=== PATIENT | female | born 1930 | race Caucasian/White ===

== ENCOUNTER 2018-02-25 13:22 | Observation (INO) | payer BC, OTHER ==
[2018-02-25 13:58] VITALS: BMI 19.7
--- NOTE | 2018-02-25 14:24 | PDOC ---
History of Present Illness - General Chief Complaint: Injury Stated Complaint: Injury Time Seen by Provider: 02/25/18 13:43 History Source: Patient Exam Limitations: Clinical Condition, Dementia - History of Present Illness Initial Comments: 87 yo F w a pmh of HTN, HCL, unsteady gait, dementia is here after an unwitnessed fall. She reports she was not able to get up and that's why she needed to come into the hospital. She does not know when she fell or for how long she was down for. Her diaper smells of urine so she likely soiled herself. An aid at bedside reports that when EMS got there there was a cup of tea on the table which was lukewarm so they believe she might have slipped and fell this morning. She states that she is only experiencing pain right now in her Right leg and she cannot walk on it. She denies any recent fevers, chills, or infections. She denies any current chest pain, SOB, or dfficulty breathing. PCP: Rey Davis Meds: amlodipine 10 + atorvastatin 20 Allergies: NKA, NKDA Social Hx: Denies current cigarette or alcohol usage. Past History - Past Medical History Allergies/Adverse Reactions: Allergies Allergy/AdvReac Type Severity Reaction Status Date / Time No Known Allergies Allergy Verified 02/25/18 13:37 COPD: No CHF: No HTN: Yes Hypercholesterolemia: Yes - Suicide/Smoking/Psychosocial Hx Smoking History: Never smoked Have you smoked in the past 12 months: No Information on smoking cessation initiated: No Hx Alcohol Use: No Drug/Substance Use Hx: No Review of Systems - Review of Systems Able to Perform ROS?: No *Physical Exam - Vital Signs Last Vital Signs Temp Pulse Resp BP Pulse Ox 97.7 F 77 16 105/48 L 100 02/25/18 13:22 02/25/18 13:22 02/25/18 13:22 02/25/18 13:22 02/25/18 13:22 - Physical Exam Comments: GENERAL: Thin elderly lady, demented, sitting comfortably in the bed. HEENT: Dry mucous membranes. b/l cataracts. Normocephalic, atraumatic. PERRL, EOM intact. CARDIOVASCULAR: Normal S1, S2. Regular rate and rhythm. PULMONARY: Clear to auscultation bilaterally. ABDOMEN: Soft, non-distended, non-tender. EXTREMITIES: Mild erythematous abrasion over the laterall Right knee. Normal ROM in all four extremities. No gross deformities. SKIN: Warm, dry. No rash NEUROLOGICAL: No focal neurological deficits. General Appearance: Yes: Disheveled, Cachetic, Thin HEENT: positive: EOMI, MIMI Moderate Sedation - Procedure Monitoring Vital Signs: Procedure Monitoring Vital Signs Temperature 97.7 F 02/25/18 13:22 Pulse Rate 77 02/25/18 13:22 Respiratory Rate 16 02/25/18 13:22 Blood Pressure 105/48 L 02/25/18 13:22 O2 Sat by Pulse Oximetry (%) 100 02/25/18 13:22 ED Treatment Course - LABORATORY CBC & Chemistry Diagram: 02/25/18 14:43 02/25/18 16:30 Medical Decision Making - Medical Decision Making 87 yo F w a pmh of HTN, HCL, unsteady gait, dementia is here after an unwitnessed fall. She reports she was not able to get up and that's why she needed to come into the hospital. She does not know when she fell or for how long she was down for. Her diaper smells of urine so she likely soiled herself. DDx IBNLT: Mechanical fall, cva/stroke, brain bleed, ACS, PNA, UTI, other infection, dehydration Plan: Cbc, Cmp, Trop, ua/uc, right leg x-rays, heaD CT, ekg, cxr, acetaminophen , IV hydration, re-assess, admit. Troponin came back at 0.4 Patient is refusing to allow us to cath her for urine. We will admit patient for Dehydration, fall, syncope, MCKENNA, and elevated troponin. *DC/Admit/Observation/Transfer Diagnosis at time of Disposition: Fall, Syncope, Dehydration, Elevated troponin - Discharge Dispostion Condition at time of disposition: Guarded Decision to Admit order: Yes - Referrals Referrals: Rey Davis MD [Primary Care Provider] - - Patient Instructions - Post Discharge Activity
[2018-02-25] MEDS ORDERED: ACETAMINOPHEN 1000 MG/100 ML VIAL (NON FORMULARY) IVPB ONE (14:52)
[2018-02-25] MEDS ORDERED: SODIUM CHLORIDE 0.9% 500 ML INFUS.BAG IV ONE ×2 (14:53→18:42)
[2018-02-25] MEDS ORDERED: ACETAMINOPHEN INJECTION 100 ML IVPB ONE (15:55)
[2018-02-25 16:08] LABS: BASO % 0.4 % (0-2.0); HEMATOCRIT 37.3 % (32.4-45.2); HEMOGLOBIN 12.8 GM/dL (10.7-15.3); LYMPH % 4.4 % (8-40); MCH 31.1 pg (25.7-33.7); MCHC 34.4 g/dl (32.0-36.0); MEAN CELL VOLUME 90.3 fl (80-96); MEAN PLT VOLUME 10.2 fl (7.5-11.1); MONO % 7.4 % (3.8-10.2); NEUT % 87.8 % (42.8-82.8); PLATELET COUNT 201 K/MM3 (134-434); RBC 4.13 M/mm3 (3.60-5.2); RDW 13.8 % (11.6-15.6); WHITE BLOOD COUNT 15.2 K/mm3 (4.0-10.0)
--- NOTE | 2018-02-25 16:19 | PDOC ---
Attending Attestation - Resident Resident Name: Hammad Delarosa - ED Attending Attestation I have performed the following: I have examined & evaluated the patient, The case was reviewed & discussed with the resident, I agree w/resident's findings & plan, Exceptions are as noted - HPI HPI: 02/25/18 16:12 The patient is a 87 year old female, with a significant past medical history of HTN, HLD, unsteady gait, and dementia, who presents to the emergency department s/p unwitnessed fall. Patient is unaware of when she fell due to her dementia. As per patients aid, she was found down on the floor with a wet diaper near a lukewarm cup of tea. The patient normally lives at home and has an aid from an agency visit her. Patients aid notes calling her Sunday without an answer and multiple calls today, without an answer. Patient is a poor historian thus history was obtained from aid at bedside and her PCP. Allergies: NKDA Social history: Nonsmoker. Denies EtOH use and recreational drug use. Primary Care Physician: Dr. Rey Davis - Physicial Exam PE: 02/25/18 16:12 agree with resident exam - Medical Decision Making 02/25/18 18:45 87yo F with hx dementia, HTN presents to the ED after unwitnessed fall and unknown down time. Vitals unremarkable. Unclear syncope vs mechanical fall however due to dementia, hx limited. Labs remarkable for leukocytosis to 15. Trauma w/u thusfar negative. CPK not concerning for rhabdo. Trop elevated to 0.4 , likely demand as EKG is non-ischemic, pt has no CP, SOB or pain anywhere. Possible UTI, however pt refusing straight cath. Has been given 1.5L NS, unable to use bed ybarra. No evidence of SIRS to cover empirically at this time. Pt admitted to Dr. Zhong for further mgmt. Case discussed in detail with admitting physician including history, physical exam and ancillary studies. Admitting physician has assumed care for the patient, will follow all pending diagnostics and will complete the evaluation and treatment. <Mary Diaz - Last Filed: 02/25/18 19:31> Attestations - Attestations 02/25/18 16:40 Documentation prepared by Paul Hdez, acting as senior medical transcriptionist for Mary Diaz MD. <Paul Hdez - Last Filed: 02/25/18 16:40>
[2018-02-25 17:48] LABS: ALBUMIN 3.2 g/dl (3.4-5.0); ALK PHOS 79 U/L (45-117); ANION GAP 12 MMOL/L (8-16); BILIRUBIN,TOTAL 1.1 mg/dL (0.2-1); BLOOD UREA NITROGEN 21 mg/dL (7-18); CALCIUM 8.8 mg/dL (8.5-10.1); CHLORIDE 106 mmol/L (98-107); CO2 22 mmol/L (21-32); CREATININE 1.6 mg/dL (0.55-1.3); GLUCOSE,RANDOM 80 mg/dL (74-106); POTASSIUM 4.8 mmol/L (3.5-5.1); SGOT/AST 30 U/L (15-37); SGPT/ALT 14 U/L (13-61); SODIUM 139 mmol/L (136-145); TOT PROT 5.9 g/dl (6.4-8.2)
[2018-02-25] MEDS ORDERED: ACETAMINOPHEN 325 MG TABLET (FP) PO PRN (20:26)
[2018-02-25] MEDS ORDERED: LACTATED RINGERS SOLUTION 1,000 ML IV SCH (20:30)
--- NOTE | 2018-02-25 20:45 | PN ---
Teaching Attending Note Name of Resident: Mike Siddiqui ATTENDING PHYSICIAN STATEMENT I saw and evaluated the patient. I reviewed the resident's note and discussed the case with the resident. I agree with the resident's findings and plan as documented. SUBJECTIVE: Seen and examined; please see resident note for further information. She is a 87 y/o CF with a PMH documented of HTN, HLD who presents to the ER after being found down froma fall that likely occurred sometime this morning. The aid found her down with warm coffee on her dresser indicating that it could have beenr ecent, she had some right leg pain. No facial trauma, etc. observed. Patient agrees that she has frequent falls at home. No family bedside so could not confirm further hx, etc. She is only orientated to self and place and is extremely hard of hearing. She has no complaints to offer except for the leg pain which already has negative imaging done in the ER. In the ER she had a ngeative trauma survey, was given 1.5L fluid, and was found to have a slight bump in her CK, troponin, and Cr with a slight leukocytosis. UA pending. She will be admitted to [facility] on the medicine service. 10 sys ROS done and negative aside from HPI PMH and PSH reviewed and are negative aside from HPI FH asked and noncontributory Social history significant for ambulates with a walker; aparently lives at home alone. She has an aide but this aide is not 24/7. Need to talk about full ADl/ IADL capacity with family, etc. Medication list reviewed with reisident but pharmacy, etc. unknown. Need to obtain information and confirm. OBJECTIVE: VS, labs, imaging reviewed NAD, resting in bed, hard of hearing, dry MMs CN2-12 wnl, no tremor, no fnd RRR s1/2 no mgr; orthostatic VS pending Lungs CTAB with sym exp NT ND +BS R-leg with negative varus/valgus/lachmans. Normal tone. Tender to palpation around the knee. NC AT EOMI PERRLA Labs show a slight leukocytosis to 15 with neutrophilic predominance, Cr 1.6, low prot/alb 5/9/3.2. Troponin 0.40, CKMB 7.9, CK 370 Imaging negative for acute findings in cpaine and head; please see reports for further documentation CXR without any acute findings No issues on tele EKG with NSR and no ST-T changes ASSESSMENT AND PLAN: Mrs. Clemente is an 87 y/o CF presenting after a fall found to have leukocytosis, elevated troponin/CK, MCKENNA. 1) Fall -Cause unknown; unreliable historian so cannot r/o syncopal causes though she does have adequate risks for a mechanical fall -Check orthostatic VS -In terms of cardiogenic causes she has negative EKG/tele thus far. Monitor on tele, check echo. Consider further imaging/tests based on results. -In terms of neurogenic causes she has no s/s seizures, negative neuro imaging. Monitor and consider further testing as needed -Consider mechanical fall; fall precautions -PT consult; she implies this is happening often -She may require placement 2) Elevated troponin -No c/o chest pain; nondiagnostic level. May be elevated from cardiac strain and renal retention. Will trend, monitor on tele, check an echo. No urgent need for stress test/CV consult. Consider ASA for primary prevention upon DC. 3) Elevated CK -Nondiagnostic at this level and she does appear dehydrated with elevated Cr, etc. Hydrate empirically and trend to ensure no rhabdo. Was down for unknown period of time. 4) MCKENNA -No baseline so assuming meeting criteria. Will emprically hydrate as appears dry clinically. Repeat BMP and monitor UOP. \ 5) Leukocytosis -Check UA; could be reactive if no source of infection. Afebrile and hemodynamically stable so will hold off on any empiric treatment. Trend CBC and monitor for fever, etc. -Check ESR/CRP 6) Low albumin/protein -Check prealbumin, consider OP nutrition referral as she has reasons for poor PO intake. 7) Dementia -May require placement; consult PT and social work. Contact family and discuss situation. Obtain HCP paperwork and confirm code status with next of kin. 8) HTN -Stated to be on home amlodipine; confirm with her pharmacy/family and restart when clinically appropriate. 9) HLD -Confirm meds; continue what is clinically appropriate. 10) Right Leg Pain post fall -Negative imaging, negative myles's/varus/valgus. 11) Elevated Bilirubin -1.1 and only 1.0 is upper limit of normal; may be normal variation. No abdominal sx. Will repeat in the AM. If increases or becomes symptom FENA -LR@75 -BMP QD -Consider OP consult; continue home diet. -Fall precautions, as tolerated Consults: None Code Status/HCP: Confirm with family
--- NOTE | 2018-02-25 20:51 | HP ---
CHIEF COMPLAINT: Fall PCP: Susan HISTORY OF PRESENT ILLNESS: 87 yo female with PMH of HTN, HLD, Dimentia, admitted following an unwitnessed fall at home and found to be volume depleted with leukocytosis and elevated troponin in the ED. At baseline the pt is unable to give a history of her fall and in fact denies any recent fall, though she does admit to some pain in her right leg intermittently. She states that she lives alone at home and has a boyfriend who helps her out. She uses a walker to ambulate without assistance otherwise. She denies any fevers, chills, chest pain, SOB, N/V/D, Dysuria. ER course was notable for: (1) BUN/Cr 21/1.6, 1.5L NS (2) Troponin 0.40, repeat pending (3) Leukocytosis, UA uncollected Recent Travel: none PAST MEDICAL HISTORY: As above, clarify further history with family in AM PAST SURGICAL HISTORY: Unable to obtain Social History: Smoking: Denies Alcohol: Denies Drugs: Denies Family History: Allergies No Known Allergies Allergy (Verified 02/25/18 13:37) HOME MEDICATIONS: Home Medications Medication Instructions Recorded Unobtainable 02/25/18 REVIEW OF SYSTEMS CONSTITUTIONAL: Absent: fever, chills, diaphoresis, generalized weakness, malaise, loss of appetite, weight change HEENT: Absent: rhinorrhea, nasal congestion, throat pain, throat swelling, difficulty swallowing, mouth swelling, ear pain, eye pain, visual changes CARDIOVASCULAR: Absent: chest pain, syncope, palpitations, irregular heart rate, lightheadedness , peripheral edema RESPIRATORY: Absent: cough, shortness of breath, dyspnea with exertion, orthopnea, wheezing, stridor, hemoptysis GASTROINTESTINAL: Absent: abdominal pain, abdominal distension, nausea, vomiting, diarrhea, constipation, melena, hematochezia GENITOURINARY: Absent: dysuria, frequency, urgency, hesitancy, hematuria, flank pain, genital pain MUSCULOSKELETAL: Absent: myalgia, arthralgia, joint swelling, back pain, neck pain SKIN: Absent: rash, itching, pallor HEMATOLOGIC/IMMUNOLOGIC: Absent: easy bleeding, easy bruising, lymphadenopathy, frequent infections ENDOCRINE: Absent: unexplained weight gain, unexplained weight loss, heat intolerance, cold intolerance NEUROLOGIC: Absent: headache, focal weakness or paresthesias, dizziness, unsteady gait, seizure, mental status changes, bladder or bowel incontinence PSYCHIATRIC: Absent: anxiety, depression, suicidal or homicidal ideation, hallucinations. PHYSICAL EXAMINATION Vital Signs - 24 hr 02/25/18 02/25/18 13:22 19:36 Temperature 97.7 F Pulse Rate 77 Pulse Rate [ 63 Apical] Respiratory 16 18 Rate Blood Pressure 105/48 L Blood Pressure 126/56 L [Right Arm] O2 Sat by Pulse 100 97 Oximetry (%) GENERAL: Alert, oriented to self and place, no acute distress HEAD: Normocephalic, atraumatic. EYES: PERRL, no scleral icterus EARS, NOSE, THROAT: oropharynx clear without exudates. Dry mucous membranes. Poor dentition NECK: supple without lymphadenopathy LUNGS: CTA b/l, no crackles or wheezes HEART: Regular rate and rhythm, normal S1 and S2 without murmur ABDOMEN: Soft, nontender to palpation, normoactive bowel sounds MUSCULOSKELETAL: No bony deformities or tenderness. EXTREMITIES: 2+ pulses, warm, well-perfused. No peripheral edema. NEUROLOGICAL: Cranial nerves II-XII grossly intact SKIN: Warm, dry, Stage I skin ulcer on sacrum and Left scapular region, skin tenting noted Laboratory Results - last 24 hr 02/25/18 02/25/18 02/25/18 14:43 14:43 16:30 WBC 15.2 H RBC 4.13 Hgb 12.8 Hct 37.3 MCV 90.3 MCH 31.1 MCHC 34.4 RDW 13.8 Plt Count 201 MPV 10.2 Absolute Neuts (auto) 13.3 H Neutrophils % 87.8 H Lymphocytes % 4.4 L Monocytes % 7.4 Eosinophils % 0.0 Basophils % 0.4 Nucleated RBC % 0 Sodium Cancelled 139 Potassium Cancelled 4.8 Chloride Cancelled 106 Carbon Dioxide Cancelled 22 Anion Gap Cancelled 12 BUN Cancelled 21 H Creatinine Cancelled 1.6 H Creat Clearance w eGFR Cancelled 30.35 Random Glucose Cancelled 80 Calcium Cancelled 8.8 Total Bilirubin Cancelled 1.1 H AST Cancelled 30 ALT Cancelled 14 Alkaline Phosphatase Cancelled 79 Creatine Kinase Cancelled Creatine Kinase Index CK-MB (CK-2) Troponin I Cancelled Total Protein Cancelled 5.9 L Albumin Cancelled 3.2 L 02/25/18 16:30 WBC RBC Hgb Hct MCV MCH MCHC RDW Plt Count MPV Absolute Neuts (auto) Neutrophils % Lymphocytes % Monocytes % Eosinophils % Basophils % Nucleated RBC % Sodium Potassium Chloride Carbon Dioxide Anion Gap BUN Creatinine Creat Clearance w eGFR Random Glucose Calcium Total Bilirubin AST ALT Alkaline Phosphatase Creatine Kinase 370 H Creatine Kinase Index 2.1 CK-MB (CK-2) 7.9 H Troponin I 0.40 H Total Protein Albumin ASSESSMENT/PLAN: 87 yo female with PMH of HTN, HLD, Dimentia, admitted following an unwitnessed fall at home and found to be volume depleted with leukocytosis and elevated troponin in the ED Fall -Unwitnessed fall, no acute signs or imaging evidence of fracture or bleeding -Could be mechanical fall vs arrhythmia vs induced by UTI vs orthostatic 2/2 dehydration, or multifactorial -Orthostatic vital signs -UA pending -Telemetry monitoring, EKG noted -Pt ambulates at home alone with walker, could require further assistance at home vs SNF placement upon discharge -Physical Therapy evaluation Troponinemia -First troponin 0.40 -Likely secondary to demand as EKG with no concerning ST/Twave abnormalities -Trend troponins X3 -Repeat EKG if any concerns for chest pain or if troponin continues to elevate Elevated BUN/Cr -Likely MCKENNA as pt presents clinically volume depleted, though baseline unknown -Will continue to monitor as pt has received some fluid resuscitation -UA pending, if pt is unable to concentrate urine, would consider renal US and further workup Leukocytosis -Unsure of exact cause at this time, could be inflammatory response to fall and dehydration -UA pending, could possibly have UTI that contributed to fall -Afebrile -Hold abx for now until further source verified -ESR -CRP Hypoalbuminemia -Likely due to protein calorie malnutrition -Check Prealbumin -Would likely benefit from dietary consultation HTN -currently stable, verify home amlodipine? and continue as medically necessary HLD -Verify home med and continue as appropriate DVT Prophylaxis -Heparin 5000 units SQ TID FEN -Fluids: LR @ 75 cc/hr -Electrolytes: No electrolyte abnormalities, BMP in AM -Nutrition: Na Controlled Diet Disposition Telemetry Observation Visit type - Emergency Visit Emergency Visit: Yes ED Registration Date: 02/25/18 Care time: The patient presented to the Emergency Department on the above date and was hospitalized for further evaluation of their emergent condition. - New Patient This patient is new to me today: Yes Date on this admission: 02/25/18 - Critical Care Critical Care patient: No
[2018-02-25 21:26] LABS: URINE APPEARANCE CLOUDY; URINE BILIRUBIN NEGATIVE (<2.0 mg/dL); URINE COLOR AMBER; URINE GLUCOSE (UA) 1+ (NEGATIVE); URINE KETONE 1+ (NEGATIVE); URINE LEUK ESTERASE NEGATIVE (NEGATIVE); URINE NITRITE NEGATIVE (NEGATIVE); URINE PROTEIN 1+ (NEGATIVE); URINE UROBILINOGEN 4.0 E.U/dl mg/dL (0.2-1.0)
[2018-02-25 21:46] LABS: EPI CELLS RARE /HPF (FEW); URINE BACTERIA RARE /hpf (NONE SEEN); URINE HYALINE CAST 18 /lpf; URINE MUCUS MANY
[2018-02-25 22:23] LABS: MAGNESIUM 1.9 mg/dL (1.8-2.4); PHOSPHOROUS 3.9 mg/dL (2.5-4.9)
[2018-02-26] MEDS: HEPARIN NA (PORCINE) 5,000 UNITS/ML 1ML VIAL SQ SCH ×4 (00:55→21:48)
[2018-02-26 05:05] LABS: BASO % 0.4 % (0-2.0); HEMATOCRIT 34.2 % (32.4-45.2); HEMOGLOBIN 10.8 GM/dL (10.7-15.3); LYMPH % 15.3 % (8-40); MCH 29.3 pg (25.7-33.7); MCHC 31.5 g/dl (32.0-36.0); MEAN CELL VOLUME 93.2 fl (80-96); MEAN PLT VOLUME 10.4 fl (7.5-11.1); MONO % 6.3 % (3.8-10.2); PLATELET COUNT 168 K/MM3 (134-434); RBC 3.67 M/mm3 (3.60-5.2)
[2018-02-26 05:23] LABS: ANION GAP 12 MMOL/L (8-16); BLOOD UREA NITROGEN 25 mg/dL (7-18); CALCIUM 7.9 mg/dL (8.5-10.1); CHLORIDE 113 mmol/L (98-107); CO2 17 mmol/L (21-32); CREATININE 1.6 mg/dL (0.55-1.3); GLUCOSE,RANDOM 80 mg/dL (74-106); POTASSIUM 5.1 mmol/L (3.5-5.1); SODIUM 141 mmol/L (136-145)
[2018-02-26 07:10] LABS: PREALBUMIN 12.1 mg/dl (20-40)
[2018-02-26] MEDS ORDERED: SODIUM CHLORIDE 1,000 ML IV SCH (08:45)
--- NOTE | 2018-02-26 08:55 | PN ---
Progress Note, Physician Chief Complaint: Pt lying in bed in no acute distress. history not clear. reports wanting to go back home. Denies any chest pain, sob, n/v/d - Current Medication List Current Medications: Active Medications Acetaminophen (Tylenol -) 650 mg PO Q4H PRN PRN Reason: PAIN OR FEVER Aspirin (Ecotrin -) 81 mg PO DAILY MEGHANN Atorvastatin Calcium (Lipitor -) 20 mg PO HS MEGHANN Heparin Sodium (Porcine) (Heparin -) 5,000 unit SQ TID MEGHANN Last Admin: 02/26/18 06:50 Dose: 5,000 unit Sodium Chloride (Normal Saline -) 1,000 mls @ 75 mls/hr IV ASDIR MEGHANN - Objective Vital Signs: Vital Signs Temperature 98.4 F 02/26/18 08:34 Pulse Rate 72 02/26/18 08:34 Respiratory Rate 18 02/26/18 08:34 Blood Pressure 121/51 L 02/26/18 08:34 O2 Sat by Pulse Oximetry (%) 99 02/26/18 04:28 Constitutional: Yes: Well Nourished, No Distress, Calm Cardiovascular: Yes: Regular Rate and Rhythm Respiratory: Yes: WNL, Regular, CTA Bilaterally. No: Accessory Muscle Use, SOB , Tachypnea Gastrointestinal: Yes: WNL, Normal Bowel Sounds, Soft. No: Distention, Tenderness Genitourinary: Yes: WNL Musculoskeletal: Yes: WNL Edema: No Neurological: Yes: Alert, Confusion Psychiatric: Yes: Alert Labs: CBC, BMP 02/26/18 04:40 02/26/18 04:40 Problem List - Problems (1) Unwitnessed fall Assessment/Plan: unwitnessed fall at home uncertain if syncope head ct neg all imaging neg for any fx carotid duplex pending PT eval cardiology following neuro consult pending Code(s): R29.6 - REPEATED FALLS (2) MCKENNA (acute kidney injury) Assessment/Plan: acute on chronic baseline cr 1.2-1.4 IVF encourage PO monitor bmp Code(s): N17.9 - ACUTE KIDNEY FAILURE, UNSPECIFIED (3) Elevated troponin Assessment/Plan: asymptomatic trend troponin less likely acs cardiology following Code(s): R74.8 - ABNORMAL LEVELS OF OTHER SERUM ENZYMES (4) HLD (hyperlipidemia) Assessment/Plan: chronic continue statin Code(s): E78.5 - HYPERLIPIDEMIA, UNSPECIFIED (5) HTN (hypertension) Assessment/Plan: controlled continue amlodipine Code(s): I10 - ESSENTIAL (PRIMARY) HYPERTENSION Qualifiers: Hypertension type: essential hypertension Qualified Code(s): I10 - Essential (primary) hypertension (6) CKD (chronic kidney disease) Assessment/Plan: outpt records cr 1.2-1.4 Code(s): N18.9 - CHRONIC KIDNEY DISEASE, UNSPECIFIED Qualifiers: Chronic kidney disease stage: stage 2 (mild) Qualified Code(s): N18.2 - Chronic kidney disease, stage 2 (mild) (7) Dementia Assessment/Plan: evaluated by psych pt lacks capacity Code(s): F03.90 - UNSPECIFIED DEMENTIA WITHOUT BEHAVIORAL DISTURBANCE Qualifiers: Dementia behavioral disturbance: without behavioral disturbance
--- NOTE | 2018-02-26 09:43 | CON.CARD ---
Consult Consult Specialty:: Cardiology Referred by:: Sherfi Reason for Consultation:: elevated troponin - History of Present Illness Chief Complaint: fall History of Present Illness: 87F h/o HTN, HLD, dementia p/w fall, leukocytosis, elevated troponin. Unable to give history of fall and denies recent fall, complains of right leg pain. No chest pain, palps, dizziness, lightheadedness, uses walker to walk. Trop 0.4-> 0.7->0.8->0.9. received IV fluids. Feels well this morning, asking to go home - Alcohol/Substance Use Hx Alcohol Use: No - Smoking History Smoking history: Never smoked Have you smoked in the past 12 months: No Home Medications - Allergies Allergies/Adverse Reactions: Allergies Allergy/AdvReac Type Severity Reaction Status Date / Time No Known Allergies Allergy Verified 02/25/18 13:37 - Home Medications Home Medications: Ambulatory Orders Amlodipine Besylate 10 mg PO DAILY 02/25/18 Aspirin [Aspirin EC] 81 mg PO DAILY 02/25/18 Atorvastatin Ca [Lipitor] 20 mg PO HS 02/25/18 Ergocalciferol (Vitamin D2) [Drisdol] 50,000 unit PO DAILY 02/25/18 Family Disease History - Family Disease History Family History: Unremarkable Review of Systems - Review of Systems Constitutional: reports: No Symptoms Eyes: reports: No Symptoms HENT: reports: No Symptoms Neck: reports: No Symptoms Cardiovascular: reports: No Symptoms Respiratory: reports: No Symptoms Gastrointestinal: reports: No Symptoms Genitourinary: reports: No Symptoms Musculoskeletal: reports: No Symptoms Integumentary: reports: No Symptoms Neurological: reports: No Symptoms Endocrine: reports: No Symptoms Hematology/Lymphatic: reports: No Symptoms Psychiatric: reports: No Symptoms Vital Signs: Vital Signs Temperature 98.4 F 02/26/18 08:34 Pulse Rate 72 02/26/18 08:34 Respiratory Rate 18 02/26/18 08:34 Blood Pressure 121/51 L 02/26/18 08:34 O2 Sat by Pulse Oximetry (%) 99 02/26/18 04:28 Constitutional: Yes: Well Nourished, No Distress, Calm Eyes: Yes: Conjunctiva Clear, EOM Intact HENT: Yes: Atraumatic, Normocephalic Neck: Yes: Supple, Trachea Midline Respiratory: Yes: Regular, CTA Bilaterally Gastrointestinal: Yes: Normal Bowel Sounds, Soft Cardiovascular: Yes: Regular Rate and Rhythm JVD: No Heart Sounds: Yes: S1, S2 Musculoskeletal: No: Back Pain Extremities: No: Cold Edema: No Peripheral Pulses: 2+ Left Carotid, 2+ Right Carotid, 2+ Left Doralis Pedis, 2+ Right Dorsalis Pedis Neurological: Yes: Alert, Oriented Psychiatric: Yes: Alert, Oriented - Other Data Labs, Other Data: CBC, BMP 02/26/18 04:40 02/26/18 04:40 Troponin, BNP 02/25/18 02/25/18 02/25/18 14:43 16:30 21:45 Troponin I Cancelled 0.40 H 0.71 H* 02/26/18 04:40 Troponin I 0.85 H* Troponin, BNP 02/25/18 02/25/18 02/25/18 14:43 16:30 21:45 Troponin I Cancelled 0.40 H 0.71 H* 02/26/18 04:40 Troponin I 0.85 H* Assessment/Plan EKG: sinus, no ST changes 87F h/o HTN, HLD, dementia p/w fall, leukocytosis, elevated troponin elevated troponin - flat trend, EKG unremarkable, no chest pain - less likely ACS - may be demand ischemia in setting of MCKENNA, fall, elevated CK - trend to peak - echo pendnig HTN - stable, not on meds currently ?amlodipine at home, holding for now HLD - continue status MCKENNA - may be prerenal, dehydration - manage per primary team
--- NOTE | 2018-02-26 10:33 | CONSULT ---
Admitting History and Physical - Primary Care Physician PCP: Heide Gorman - Admission History of Present Illness: Mrs. Clemente is an 87 y/o CF presenting after an unwitnessed fal,l found to have leukocytosis, elevated troponin/CK, MCKENNA. History Source: Patient Limitations to Obtaining History: No Limitations, Clinical Condition - Smoking History Smoking history: Never smoked Have you smoked in the past 12 months: No - Alcohol/Substance Use Hx Alcohol Use: No History - Admission Reason For Visit: SYNCOPE/ELEVATED TROPON/FALL/DEHYDRATION - Diagnostics X-ray: Report Reviewed CT Scan: Report Reviewed - General Mental Status: Alert and Oriented, Awake and Alert Attention: Intact Ability to Follow Directions: Fair (Greater difficulty with 2 stage commands. " I have trouble understanding people sometimes." She denies a hearing loss. Auditory processing +/or Sensorineural deficits affecting clarity.) Head/Neck Control: WFL - Hearing Hearing: Impaired Hearing Aide: No Speech Evaluation - Communication Primary Language: MALTESE Oral Expression Ability: Yes: Mild Impairment - Speech Production Intelligibility: Yes: WNL - Speech Characteristics Voice Loudness: Normal Voice Pitch: Yes: Normal Voice Phonatory-based Quality: Yes: Normal Speech Pattern: Normal Speech Clarity: < 100% Nasal Resonance: Normal Articulation: Yes: Precise - Language/Auditory Comprehension Follows: Yes: 1 Stage Simple Commands (70%), 2 Stage Simple Commands (difficulty ) Observation: Comprehends Conversational Speech: Yes (intermittent difficulty), Benefits from Slow Speech: Yes, Benefits from Repetiton: Yes, Benefits from Increased Volume of Speech: Yes - Language/Verbal Expression Aphasia: Yes: Anomia, Impaired Repetition (More difficulty with longer, low probability sentences. Hearing?), Paraphrasic Errors Able to Respond to Simple Queries: Yes: Mildly Impaired Able to Communicate Wants and Needs: Yes: Mildly Impaired Functional Communication Status: Yes: Mildly Impaired - Memory/Perception terminal system operator Memory: Yes: WNL Short Term Memory: Yes: WNL - Swallow Evaluation/Bedside Assessment Current Nutritional Intake: Regular, Thin Liquids Oral Secretions: Yes: WFL Dentition: Yes: Adequate Facial Symmetry at Rest: Symmetrical Facial Symmetry on Retraction: Symmetrical Facial Movement: Controlled Against Resistance Opening: Normal Against Resistance Closing: Normal Pucker Lips: Normal Smile: Normal Lingual Movement: Normal, Symmetric Lingual Speed of Movement: Normal Lingual Movement Strgth Against Opposition: Normal Lingual Movement Characteristics: Normal Velopharyngeal Movement: Normal Laryngeal Elevation: WFL Laryngeal Movement: Able to Palpate Rate of Intake: WFL Bolus Size: WFL Labial Seal: WFL Chewing: WFL Oral Prep Time: WFL A-P Transit: WFL Pocketing: None Timing of Swallow: WFL Coughing/Throat Clear: No Change in Voice: No Recommendations - Speech Evaluation, Impression/Plan Impression: Pt is a good historian, telling me she fell, that this has happened before and that her right leg is weak and gives way. She reports never getting but has a boyfriend in her building for 10 years. She worked as an [employer] in the [employer] in the [place] many years ago. Pt seems oriented times 3, but repeatedly said she would be "nine" (for ninety) in February. She named a cup a "bottle" but corrected heself when questioned. She demonstrates some difficulty responding to questions and following commands with ddx hearing loss and possible auditory comprehension deficits. Per admission note, pt was a poor historian due to Dementia. Pt is a good historian for me today. r/o hearing loss/ CVA with improving communication?-mild Aphasia with paraphasic errors/auditory comprehesion deficits. Pt reports weak right leg with fall ("it's happened before") - Dysphagia Impressions/Plan Swallowing Skills: [facility] Dysphagia Impressions: No Impairment *Silent aspiration: cannot be R/O at bedside Recommendations: Neuro Consult - Recommendations Diet Consistency: Regular Medication Administration: Whole with water Liquids: Thin Liquids
[2018-02-26] MEDS: ASPIRIN COATED 81 MG TABLET.EC PO SCH (11:07)
--- NOTE | 2018-02-26 11:33 | ECHO ---
Name: LALO MENDOZA Exam:Adult Echocardiogram Study Date: 02/26/2018 07:36 AM Age: 87 yrs Reason For Study: ELEVATED TROPONIN Height: 60 in Weight: 101 lb BSA: 1.4 m2 MMode/2D Measurements & Calculations IVSd: 0.84 cm Ao root diam: 2.6 cm LVIDd: 3.5 cm LA dimension: 2.9 cm LVIDs: 1.9 cm LVPWd: 0.77 cm EDV(Teich): 51.2 ml LAV (MOD-bp): 50.2 ml ESV(Teich): 11.5 ml Doppler Measurements & Calculations MV E max glenn: 96.8 cm/sec AI P1/2t: 598.9 msec MV A max glenn: 113.8 cm/sec MV E/A: 0.85 MV dec time: 0.19 sec AI max glenn: 232.1 cm/sec TR max glenn: 296.6 cm/sec AI max P.6 mmHg TR max P.3 mmHg AI dec slope: 113.5 cm/sec2 Med Peak E' Glenn: 8.1 cm/sec Med E/e': 12.0 Lat Peak E' Glenn: 5.9 cm/sec Lat E/e': 16.5 Procedure A two-dimensional transthoracic echocardiogram with color flow and Doppler was performed. The study w as technically difficult with many images being suboptimal in quality. The patient was in normal sinus r hythm during the exam. Left Ventricle Left ventricular systolic function is normal. Ejection Fraction = 65%. E/A reversal consistent with b ut not diagnostic of poor LV compliance. Right Ventricle The right ventricle is not well visualized. The right ventricle is grossly normal size. The right veronica tricular systolic function is grossly normal. Atria The left atrial size is normal. Mitral Valve The mitral valve is normal. There is mild mitral regurgitation. Tricuspid Valve The tricuspid valve is normal. There is mild tricuspid regurgitation. Right ventricular systolic pres sure is elevated at 40-50mmHg. Aortic Valve There is mild aortic sclerosis.;. The aortic valve is trileaflet. Mild aortic regurgitation. Great Vessels The aortic root is normal size. Pericardium/Pleura There is no pericardial effusion. Interpretation Summary MD Liam Quintana 02/26/2018 11:32 AM
--- NOTE | 2018-02-26 12:57 | EKG ---
Test Reason : Blood Pressure : / mmHG Vent. Rate : 063 BPM Atrial Rate : 063 BPM P-R Int : 136 ms QRS Dur : 076 ms QT Int : 420 ms P-R-T Axes : 071 070 057 degrees QTc Int : 429 ms NORMAL SINUS RHYTHM WITH SINUS ARRHYTHMIA NONSPECIFIC ST ABNORMALITY ABNORMAL ECG WHEN COMPARED WITH ECG OF 25-FEB-2018 13:49, NO SIGNIFICANT CHANGE WAS FOUND Confirmed by Sunday Castellanos ([id number]) on 02/26/2018 12:57:05 PM Referred By: Confirmed By:Sunday Castellanos
--- NOTE | 2018-02-26 12:58 | EKG ---
Test Reason : Blood Pressure : / mmHG Vent. Rate : 068 BPM Atrial Rate : 068 BPM P-R Int : 120 ms QRS Dur : 070 ms QT Int : 406 ms P-R-T Axes : 054 069 063 degrees QTc Int : 431 ms NORMAL SINUS RHYTHM NORMAL ECG WHEN COMPARED WITH ECG OF 28-APR-1998 15:28, NO SIGNIFICANT CHANGE WAS FOUND Confirmed by Sunday Castellanos ([id number]) on 02/26/2018 12:58:24 PM Referred By: Confirmed By:Sunday Castellanos
[2018-02-26] MEDS ORDERED: FLU VACCINE QUAD 60 MCG/0.5 ML (MDV 18-19) IM ONE (13:02)
[2018-02-26] MEDS: SODIUM CHLORIDE 1,000 ML IV SCH (15:24)
--- NOTE | 2018-02-26 18:45 | CON.PSY ---
Psychiatry Consult Chief Complaint: 87 year old femal;e with Dementia , lives at home with an aid. She came to ER with a complaint thatv she fell. She was found to be confused and unable to give any consistant history or relevent info. Symptoms: reports: Memory Impairment, Aggressivity, Oppositionalism - Previous Psychiatric Treatment Outpatient: None Inpatient: None - Previous Substance Abuse Treatment Outpatient: None Inpatient: None - Current Medications Current Medications: Active Medications Acetaminophen (Tylenol -) 650 mg PO Q4H PRN PRN Reason: PAIN OR FEVER Aspirin (Ecotrin -) 81 mg PO DAILY [facility] Last Admin: 02/26/18 11:07 Dose: 81 mg Atorvastatin Calcium (Lipitor -) 20 mg PO HS [facility] Heparin Sodium (Porcine) (Heparin -) 5,000 unit SQ TID [facility] Last Admin: 02/26/18 15:25 Dose: 5,000 unit Sodium Chloride (Normal Saline -) 1,000 mls @ 100 mls/hr IV ASDIR [facility] Last Admin: 02/26/18 15:24 Dose: 100 mls/hr - Allergies Allergies: Allergies Allergy/AdvReac Type Severity Reaction Status Date / Time No Known Allergies Allergy Verified 02/25/18 13:37 - Current Living Status Usual Living Arrangement: Alone - Current Mental Status Evaluation Appearance: Disheveled Attitude: Guarded - Affect Affect: Labile Appropriateness: Not Appropriate - Mood Mood: Angry - Speech/Language Expressive: Delayed - Psychomotor Activity Psychomotor Activity: Hyperactive - Thought Content Hallucinations: Absent Delusions: Absent - Self Perception Self Perception: No Impairment - Cognition Attention: Diminished Memory, Short Term: 1/3 Memory, Remote with Promptin/3 - Concentration Serial Sevens Intact: No Simple Calculations Intact: No - Abstraction Proverb Interpretation: [place] Judgement: Moderately Impaired - Insight Insight: Impaired - Impulse Control Impulse Control: Moderately Impaired - Suicidal Ideation Suicidal Ideation: No - Homicidal Ideation Homicidal Ideation: No Assessment/Plan 1) Patient lacks functional capacity to make decisions at this time.
[2018-02-26] MEDS: ATORVASTATIN CA 20 MG TABLET (FP) PO SCH (21:49)
[2018-02-27] MEDS: HEPARIN NA (PORCINE) 5,000 UNITS/ML 1ML VIAL SQ SCH ×3 (06:21→21:06)
[2018-02-27 07:33] LABS: BASO % 0.9 % (0-2.0); EOS % 0.6 % (0-4.5); HEMATOCRIT 35.7 % (32.4-45.2); HEMOGLOBIN 11.4 GM/dL (10.7-15.3); LYMPH % 30.6 % (8-40); MCH 29.8 pg (25.7-33.7); MCHC 31.9 g/dl (32.0-36.0); MEAN CELL VOLUME 93.3 fl (80-96); MEAN PLT VOLUME 10.5 fl (7.5-11.1); MONO % 6.3 % (3.8-10.2); NEUT % 61.6 % (42.8-82.8); PLATELET COUNT 189 K/MM3 (134-434); RBC 3.83 M/mm3 (3.60-5.2); RDW 13.9 % (11.6-15.6)
[2018-02-27 08:30] LABS: ANION GAP 13 MMOL/L (8-16); BLOOD UREA NITROGEN 21 mg/dL (7-18); CALCIUM 8.4 mg/dL (8.5-10.1); CHLORIDE 112 mmol/L (98-107); CHOLESTEROL 196 mg/dL (50-200); CO2 18 mmol/L (21-32); CREATININE 1.4 mg/dL (0.55-1.3); GLUCOSE,RANDOM 75 mg/dL (74-106); HDL CHOLESTEROL 65 mg/dL (40-60); POTASSIUM 4.3 mmol/L (3.5-5.1); SODIUM 142 mmol/L (136-145); TRIGLYCERIDES 167 mg/dL (0-150)
--- NOTE | 2018-02-27 08:50 | CONSULT ---
Consult - text type - Consultation Consultation Note: Neurology CHIEF COMPLAINT: Fall HISTORY OF PRESENT ILLNESS: 87 yo female with PMH of HTN, HLD, Dimentia, admitted following an unwitnessed fall at home and found to be volume depleted with leukocytosis and elevated troponin in the ED. At baseline the pt is unable to give a history of her fall and in fact denies any recent fall, though she does admit to some pain in her right leg intermittently. She stated that she lives alone at home and has a boyfriend who helps her out. She uses a walker to ambulate without assistance otherwise. She denies any fevers, chills, chest pain, SOB, N/V/D, Dysuria. Contacted to assess for dementia. During my evaluation, she does not know she's in hospital, believes she's in long term but cannot state which one. Does not know date. Cannot tell me name of President. CT head complete and without acute changes. CT C spine without fractures. Echo reviewed, EF 65%. Recent Travel: none PAST MEDICAL HISTORY: As above, clarify further history with family in AM PAST SURGICAL HISTORY: Unable to obtain Social History: Smoking: Denies Alcohol: Denies Drugs: Denies Family History: Allergies No Known Allergies Allergy (Verified 02/25/18 13:37) Active Medications Acetaminophen (Tylenol -) 650 mg PO Q4H PRN PRN Reason: PAIN OR FEVER Amlodipine Besylate (Norvasc -) 10 mg PO DAILY [facility] Aspirin (Ecotrin -) 81 mg PO DAILY [facility] Last Admin: 02/26/18 11:07 Dose: 81 mg Atorvastatin Calcium (Lipitor -) 20 mg PO HS [facility] Last Admin: 02/26/18 21:49 Dose: 20 mg Heparin Sodium (Porcine) (Heparin -) 5,000 unit SQ TID [facility] Last Admin: 02/27/18 06:21 Dose: 5,000 unit Sodium Chloride (Normal Saline -) 1,000 mls @ 100 mls/hr IV ASDIR [facility] Last Admin: 02/26/18 15:24 Dose: 100 mls/hr REVIEW OF SYSTEMS CONSTITUTIONAL: Absent: fever, chills, diaphoresis, generalized weakness, malaise, loss of appetite, weight change HEENT: Absent: rhinorrhea, nasal congestion, throat pain, throat swelling, difficulty swallowing, mouth swelling, ear pain, eye pain, visual changes CARDIOVASCULAR: Absent: chest pain, syncope, palpitations, irregular heart rate, lightheadedness , peripheral edema RESPIRATORY: Absent: cough, shortness of breath, dyspnea with exertion, orthopnea, wheezing, stridor, hemoptysis GASTROINTESTINAL: Absent: abdominal pain, abdominal distension, nausea, vomiting, diarrhea, constipation, melena, hematochezia GENITOURINARY: Absent: dysuria, frequency, urgency, hesitancy, hematuria, flank pain, genital pain MUSCULOSKELETAL: Absent: myalgia, arthralgia, joint swelling, back pain, neck pain SKIN: Absent: rash, itching, pallor HEMATOLOGIC/IMMUNOLOGIC: Absent: easy bleeding, easy bruising, lymphadenopathy, frequent infections ENDOCRINE: Absent: unexplained weight gain, unexplained weight loss, heat intolerance, cold intolerance NEUROLOGIC: Absent: headache, focal weakness or paresthesias, dizziness, unsteady gait, seizure, mental status changes, bladder or bowel incontinence PSYCHIATRIC: Absent: anxiety, depression, suicidal or homicidal ideation, hallucinations. PHYSICAL EXAMINATION Vital Signs Temperature 97.8 F 02/27/18 06:00 Pulse Rate 56 L 02/27/18 06:00 Respiratory Rate 02/27/18 06:00 Blood Pressure 138/62 02/27/18 06:00 O2 Sat by Pulse Oximetry (%) 98 02/26/18 21:00 GENERAL: Alert, oriented to self and place, no acute distress HEAD: Normocephalic, atraumatic. EYES: PERRL, no scleral icterus EARS, NOSE, THROAT: oropharynx clear without exudates. Dry mucous membranes. Poor dentition NECK: supple without lymphadenopathy LUNGS: CTA b/l, no crackles or wheezes HEART: Regular rate and rhythm, normal S1 and S2 without murmur ABDOMEN: Soft, nontender to palpation, normoactive bowel sounds MUSCULOSKELETAL: No bony deformities or tenderness. EXTREMITIES: 2+ pulses, warm, well-perfused. No peripheral edema. NEUROLOGICAL: Cranial nerves II-XII grossly intact, no slurred speech, moves all extremities equally, sensory intact SKIN: Warm, dry, Stage I skin ulcer on sacrum and Left scapular region, skin tenting noted CBCD WBC 9.0 K/mm3 (4.0-10.0) 02/27/18 05:30 RBC 3.83 M/mm3 (3.60-5.2) 02/27/18 05:30 Hgb 11.4 GM/dL (10.7-15.3) 02/27/18 05:30 Hct 35.7 % (32.4-45.2) 02/27/18 05:30 MCV 93.3 fl (80-96) 02/27/18 05:30 MCHC 31.9 g/dl (32.0-36.0) L 02/27/18 05:30 RDW 13.9 % (11.6-15.6) 02/27/18 05:30 Plt Count 189 K/MM3 (134-434) 02/27/18 05:30 MPV 10.5 fl (7.5-11.1) 02/27/18 05:30 CMP Sodium 142 mmol/L (136-145) 02/27/18 05:30 Potassium 4.3 mmol/L (3.5-5.1) 02/27/18 05:30 Chloride 112 mmol/L (98-107) H 02/27/18 05:30 Carbon Dioxide 18 mmol/L (21-32) L 02/27/18 05:30 Anion Gap 13 MMOL/L (8-16) 02/27/18 05:30 BUN 21 mg/dL (7-18) H 02/27/18 05:30 Creatinine 1.4 mg/dL (0.55-1.3) H 02/27/18 05:30 Creat Clearance w eGFR 35.41 (>60) 02/27/18 05:30 Calcium 8.4 mg/dL (8.5-10.1) L 02/27/18 05:30 Total Bilirubin 1.1 mg/dL (0.2-1) H 02/25/18 16:30 AST 30 U/L (15-37) 02/25/18 16:30 ALT 14 U/L (13-61) 02/25/18 16:30 Alkaline Phosphatase 79 U/L (45-117) 02/25/18 16:30 Total Protein 5.9 g/dl (6.4-8.2) L 02/25/18 16:30 Albumin 3.2 g/dl (3.4-5.0) L 02/25/18 16:30 ASSESSMENT/PLAN: 87 yo female with PMH of HTN, HLD, Dimentia, admitted following an unwitnessed fall at home and found to be volume depleted with leukocytosis and elevated troponin in the ED. At baseline the pt is unable to give a history of her fall and in fact denies any recent fall, though she does admit to some pain in her right leg intermittently. She stated that she lives alone at home and has a boyfriend who helps her out. She uses a walker to ambulate without assistance otherwise. She denies any fevers, chills, chest pain, SOB, N/V/D, Dysuria. Contacted to assess for dementia. During my evaluation, she does not know she's in hospital, believes she's in long term but cannot state which one. Does not know date. Cannot tell me name of President. CT head complete and without acute changes. CT C spine without fractures. Echo reviewed, EF 65%. Check orthostatics, hydration as able. Monitor tele, physical therapy, fall precautions. Cardiology followup. Will add aricept 5mg as patient clearly with cognitive impairment, can have formal memory testing as outpatient. Monitor/ treat underlying infection as can cause superimposed delirium.
[2018-02-27] MEDS: amLODIPine BESYLATE 10 MG TABLET (FP) PO SCH (09:08)
[2018-02-27] MEDS: ASPIRIN COATED 81 MG TABLET.EC PO SCH (09:08)
--- NOTE | 2018-02-27 09:53 | PN ---
Progress Note (short form) - Note Progress Note: Chief Complaint: fall History of Present Illness: no chest pain, palps, dizziness, lightheadedness. wants to go home Current Medications Acetaminophen (Tylenol -) 650 mg PO Q4H PRN PRN Reason: PAIN OR FEVER Amlodipine Besylate (Norvasc -) 10 mg PO DAILY [facility] Last Admin: 02/27/18 09:08 Dose: 10 mg Aspirin (Ecotrin -) 81 mg PO DAILY [facility] Last Admin: 02/27/18 09:08 Dose: 81 mg Atorvastatin Calcium (Lipitor -) 20 mg PO HS [facility] Last Admin: 02/26/18 21:49 Dose: 20 mg Heparin Sodium (Porcine) (Heparin -) 5,000 unit SQ TID [facility] Last Admin: 02/27/18 06:21 Dose: 5,000 unit Sodium Chloride (Normal Saline -) 1,000 mls @ 100 mls/hr IV ASDIR [facility] Last Admin: 02/26/18 15:24 Dose: 100 mls/hr Vital Signs: Vital Signs Period Temp Pulse Resp BP Sys/Dejesus Pulse Ox Last 24 Hr 97.8 F-98.4 F 56-69 18-24 120-147/49-62 98-99 Constitutional: Yes: Well Nourished, No Distress, Calm Eyes: Yes: Conjunctiva Clear, EOM Intact HENT: Yes: Atraumatic, Normocephalic Neck: Yes: Supple, Trachea Midline Respiratory: Yes: Regular, CTA Bilaterally Gastrointestinal: Yes: Normal Bowel Sounds, Soft Cardiovascular: Yes: Regular Rate and Rhythm JVD: No Heart Sounds: Yes: S1, S2 Musculoskeletal: No: Back Pain Extremities: No: Cold Edema: No Peripheral Pulses: 2+ Left Carotid, 2+ Right Carotid, 2+ Left Doralis Pedis, 2+ Right Dorsalis Pedis Neurological: Yes: Alert, Oriented Psychiatric: Yes: Alert, Oriented Assessment/Plan EKG: sinus, no ST changes echo 02/2018 nl LV function, grossly nl RV function, mild MR, mild AR, RVSP 40- 50 mmHg tele: sinus 87F h/o HTN, HLD, dementia p/w fall, leukocytosis, elevated troponin elevated troponin - flat trend, EKG unremarkable, no chest pain - less likely ACS - may be demand ischemia in setting of MCKENNA, fall, elevated CK - echo shows normal EF HTN - stable, home amlodipine restarted HLD - continue statin MCKENNA - may be prerenal, dehydration - improving - manage per primary team
--- NOTE | 2018-02-27 11:10 | PN ---
Progress Note, [employer]ERMAN - Note Progress Note: Chart reviewed and pt re-examined. Pt seems to be following commands better. She said she is at "[facility]" because she "fell" because of "right leg". She said it is "February" but "can not tell me the year but knows it". When given choices of 1995,2013,2017 she chose 2018 at two different trials. She said her boyfriend is picking her up to go home. She recalls having oatmeal this morning. I reviewed findings with nursing, neuro, cardiology, PNP. PNP reports that pt was dehydrated upon admission which can contribute to communication/delerium upon admission and improvement noted. Per pt's primary, pt with h/o forgetfulness. I believe pt is having difficulty retrieving words at times, improved performance since yesterday. This can be related to Dementia, although during my assessment she is oriented, improved since admission. Initial CT head (-).Pt refused carotid u/s. r/o CVA vs very mild dementia with anomia? Tolerating diet. CT head repeated- No acute stroke. "
--- NOTE | 2018-02-27 12:00 | PN ---
Progress Note, Physician Chief Complaint: Pt lying in bed in no acute distress. reports wanting to go back home. alert and oriented. easily agitated. Denies any chest pain, sob, n/v/d - Current Medication List Current Medications: Active Medications Acetaminophen (Tylenol -) 650 mg PO Q4H PRN PRN Reason: PAIN OR FEVER Amlodipine Besylate (Norvasc -) 10 mg PO DAILY [facility] Last Admin: 02/27/18 09:08 Dose: 10 mg Aspirin (Ecotrin -) 81 mg PO DAILY [facility] Last Admin: 02/27/18 09:08 Dose: 81 mg Atorvastatin Calcium (Lipitor -) 20 mg PO HS [facility] Last Admin: 02/26/18 21:49 Dose: 20 mg Heparin Sodium (Porcine) (Heparin -) 5,000 unit SQ TID [facility] Last Admin: 02/27/18 06:21 Dose: 5,000 unit Sodium Chloride (Normal Saline -) 1,000 mls @ 100 mls/hr IV ASDIR [facility] Last Admin: 02/26/18 15:24 Dose: 100 mls/hr - Objective Vital Signs: Vital Signs Temperature 97.8 F 02/27/18 06:00 Pulse Rate 56 L 02/27/18 06:00 Respiratory Rate 18 02/27/18 06:00 Blood Pressure 138/62 02/27/18 06:00 O2 Sat by Pulse Oximetry (%) 98 02/26/18 21:00 Constitutional: Yes: No Distress, Calm Cardiovascular: Yes: WNL, Regular Rate and Rhythm Respiratory: Yes: WNL, Regular, CTA Bilaterally. No: Accessory Muscle Use, SOB , Tachypnea, Wheezes Gastrointestinal: Yes: WNL, Normal Bowel Sounds, Soft. No: Distention, Tenderness Genitourinary: Yes: WNL Extremities: Yes: WNL Edema: No Neurological: Yes: Alert, Oriented, Confusion (intermittent, forgetful) Psychiatric: Yes: Alert Labs: CBC, BMP 02/27/18 05:30 02/27/18 05:30 - ....Imaging Cat Scan: Report Reviewed (repeat head CT neg) Problem List - Problems (1) Unwitnessed fall Code(s): R29.6 - REPEATED FALLS (2) MCKENNA (acute kidney injury) Code(s): N17.9 - ACUTE KIDNEY FAILURE, UNSPECIFIED (3) Elevated troponin Code(s): R74.8 - ABNORMAL LEVELS OF OTHER SERUM ENZYMES (4) HLD (hyperlipidemia) Code(s): E78.5 - HYPERLIPIDEMIA, UNSPECIFIED (5) HTN (hypertension) Code(s): I10 - ESSENTIAL (PRIMARY) HYPERTENSION Qualifiers: Hypertension type: essential hypertension Qualified Code(s): I10 - Essential (primary) hypertension (6) CKD (chronic kidney disease) Code(s): N18.9 - CHRONIC KIDNEY DISEASE, UNSPECIFIED Qualifiers: Chronic kidney disease stage: stage 2 (mild) Qualified Code(s): N18.2 - Chronic kidney disease, stage 2 (mild) (7) Dementia Code(s): F03.90 - UNSPECIFIED DEMENTIA WITHOUT BEHAVIORAL DISTURBANCE Qualifiers: Dementia behavioral disturbance: without behavioral disturbance Assessment/Plan (1) Unwitnessed fall Assessment/Plan: unwitnessed fall at home uncertain if syncope head ct neg x 2 all imaging neg for any fx carotid duplex- pt refuses PT eval- ambulated 40 ft cardiology/neuro folowing SNF placement Code(s): R29.6 - REPEATED FALLS (2) MCKENNA (acute kidney injury) Assessment/Plan: acute on chronic improving baseline cr 1.2-1.4 IVF encourage PO monitor bmp Code(s): N17.9 - ACUTE KIDNEY FAILURE, UNSPECIFIED (3) Elevated troponin Assessment/Plan: asymptomatic trop peaked less likely acs cardiology following Code(s): R74.8 - ABNORMAL LEVELS OF OTHER SERUM ENZYMES (4) HLD (hyperlipidemia) Assessment/Plan: chronic continue statin Code(s): E78.5 - HYPERLIPIDEMIA, UNSPECIFIED (5) HTN (hypertension) Assessment/Plan: controlled continue amlodipine Code(s): I10 - ESSENTIAL (PRIMARY) HYPERTENSION Qualifiers: Hypertension type: essential hypertension Qualified Code(s): I10 - Essential (primary) hypertension (6) CKD (chronic kidney disease) Assessment/Plan: outpt records cr 1.2-1.4 Code(s): N18.9 - CHRONIC KIDNEY DISEASE, UNSPECIFIED Qualifiers: Chronic kidney disease stage: stage 2 (mild) Qualified Code(s): N18.2 - Chronic kidney disease, stage 2 (mild) (7) Dementia Assessment/Plan: social insurance specialist have guardianship, agrees with SNF placement evaluated by psych pt lacks capacity Code(s): F03.90 - UNSPECIFIED DEMENTIA WITHOUT BEHAVIORAL DISTURBANCE Qualifiers: Dementia behavioral disturbance: without behavioral disturbance Dispo: SNF tomorrow
[2018-02-27] MEDS: SODIUM CHLORIDE 1,000 ML IV SCH (15:07)
[2018-02-27] MEDS: ATORVASTATIN CA 20 MG TABLET (FP) PO SCH (21:06)
[2018-02-28] MEDS: HEPARIN NA (PORCINE) 5,000 UNITS/ML 1ML VIAL SQ SCH ×2 (06:12→13:52)
[2018-02-28 06:59] LABS: BASO % 1.2 % (0-2.0); EOS % 2.8 % (0-4.5); HEMATOCRIT 31.4 % (32.4-45.2); HEMOGLOBIN 10.8 GM/dL (10.7-15.3); MCH 31.3 pg (25.7-33.7); MCHC 34.5 g/dl (32.0-36.0); MEAN CELL VOLUME 90.8 fl (80-96); MEAN PLT VOLUME 10.2 fl (7.5-11.1); MONO % 7.7 % (3.8-10.2); NEUT % 57.3 % (42.8-82.8); PLATELET COUNT 186 K/MM3 (134-434); RBC 3.46 M/mm3 (3.60-5.2); RDW 14.2 % (11.6-15.6); WHITE BLOOD COUNT 5.8 K/mm3 (4.0-10.0)
[2018-02-28 07:56] LABS: ANION GAP 11 MMOL/L (8-16); BLOOD UREA NITROGEN 14 mg/dL (7-18); CALCIUM 7.6 mg/dL (8.5-10.1); CHLORIDE 114 mmol/L (98-107); CO2 19 mmol/L (21-32); GLUCOSE,RANDOM 82 mg/dL (74-106); POTASSIUM 3.7 mmol/L (3.5-5.1); SODIUM 144 mmol/L (136-145)
--- NOTE | 2018-02-28 08:58 | PN ---
Progress Note (short form) - Note Progress Note: Neurology HISTORY OF PRESENT ILLNESS: 87 yo female with PMH of HTN, HLD, Dimentia, admitted following an unwitnessed fall at home and found to be volume depleted with leukocytosis and elevated troponin in the ED. At baseline the pt is unable to give a history of her fall and in fact denies any recent fall, though she does admit to some pain in her right leg intermittently. She stated that she lives alone at home and has a boyfriend who helps her out. She uses a walker to ambulate without assistance otherwise. She denies any fevers, chills, chest pain, SOB, N/V/D, Dysuria. Contacted to assess for dementia. During my evaluation, she does not know she's in hospital, believes she's in skilled nursing but cannot state which one. Does not know date. Cannot tell me name of President. CT head complete and without acute changes. CT C spine without fractures. Echo reviewed, EF 65%. Concern regarding aphasia and therefore CT head repeated yesterday, no acute changes. Carotid doppler reviewed, plaques noted, consider vascular eval. Discussed with primary team. Allergies No Known Allergies Allergy (Verified 02/25/18 13:37) Active Medications Acetaminophen (Tylenol -) 650 mg PO Q4H PRN PRN Reason: PAIN OR FEVER Amlodipine Besylate (Norvasc -) 10 mg PO DAILY [facility] Last Admin: 02/27/18 09:08 Dose: 10 mg Aspirin (Ecotrin -) 81 mg PO DAILY [facility] Last Admin: 02/27/18 09:08 Dose: 81 mg Atorvastatin Calcium (Lipitor -) 20 mg PO HS [facility] Last Admin: 02/27/18 21:06 Dose: 20 mg Heparin Sodium (Porcine) (Heparin -) 5,000 unit SQ TID [facility] Last Admin: 02/28/18 06:12 Dose: 5,000 unit Sodium Chloride (Normal Saline -) 1,000 mls @ 100 mls/hr IV ASDIR [facility] Last Admin: 02/27/18 15:07 Dose: 100 mls/hr PHYSICAL EXAMINATION Vital Signs Period Temp Pulse Resp BP Sys/Dejesus Pulse Ox Last 24 Hr 97.8 F-98.6 F 62-79 18-20 123-167/52-74 99 GENERAL: Alert, oriented to self and place, no acute distress HEAD: Normocephalic, atraumatic. EYES: PERRL, no scleral icterus EARS, NOSE, THROAT: oropharynx clear without exudates. Dry mucous membranes. Poor dentition NECK: supple without lymphadenopathy LUNGS: CTA b/l, no crackles or wheezes HEART: Regular rate and rhythm, normal S1 and S2 without murmur ABDOMEN: Soft, nontender to palpation, normoactive bowel sounds MUSCULOSKELETAL: No bony deformities or tenderness. EXTREMITIES: 2+ pulses, warm, well-perfused. No peripheral edema. NEUROLOGICAL: Cranial nerves II-XII grossly intact, no slurred speech, moves all extremities equally, sensory intact SKIN: Warm, dry, Stage I skin ulcer on sacrum and Left scapular region, skin tenting noted CBCD WBC 5.8 K/mm3 (4.0-10.0) 02/28/18 05:30 RBC 3.46 M/mm3 (3.60-5.2) L 02/28/18 05:30 Hgb 10.8 GM/dL (10.7-15.3) 02/28/18 05:30 Hct 31.4 % (32.4-45.2) L 02/28/18 05:30 MCV 90.8 fl (80-96) 02/28/18 05:30 MCHC 34.5 g/dl (32.0-36.0) 02/28/18 05:30 RDW 14.2 % (11.6-15.6) 02/28/18 05:30 Plt Count 186 K/MM3 (134-434) 02/28/18 05:30 MPV 10.2 fl (7.5-11.1) 02/28/18 05:30 CMP Sodium 144 mmol/L (136-145) 02/28/18 05:30 Potassium 3.7 mmol/L (3.5-5.1) 02/28/18 05:30 Chloride 114 mmol/L (98-107) H 02/28/18 05:30 Carbon Dioxide 19 mmol/L (21-32) L 02/28/18 05:30 Anion Gap 11 MMOL/L (8-16) 02/28/18 05:30 BUN 14 mg/dL (7-18) 02/28/18 05:30 Creatinine 1.0 mg/dL (0.55-1.3) 02/28/18 05:30 Creat Clearance w eGFR 52.20 (>60) 02/28/18 05:30 Random Glucose 82 mg/dL (74-106) 02/28/18 05:30 Calcium 7.6 mg/dL (8.5-10.1) L 02/28/18 05:30 Total Bilirubin 1.1 mg/dL (0.2-1) H 02/25/18 16:30 AST 30 U/L (15-37) 02/25/18 16:30 ALT 14 U/L (13-61) 02/25/18 16:30 Alkaline Phosphatase 79 U/L (45-117) 02/25/18 16:30 Total Protein 5.9 g/dl (6.4-8.2) L 02/25/18 16:30 Albumin 3.2 g/dl (3.4-5.0) L 02/25/18 16:30 CARDIAC ENZYMES Creatine Kinase 545 IU/L (26-192) H 02/27/18 05:30 Troponin I 0.79 ng/ml (0.00-0.05) H* 02/27/18 05:30 ASSESSMENT/PLAN: 87 yo female with PMH of HTN, HLD, Dimentia, admitted following an unwitnessed fall at home and found to be volume depleted with leukocytosis and elevated troponin in the ED. At baseline the pt is unable to give a history of her fall and in fact denies any recent fall, though she does admit to some pain in her right leg intermittently. She stated that she lives alone at home and has a boyfriend who helps her out. She uses a walker to ambulate without assistance otherwise. She denies any fevers, chills, chest pain, SOB, N/V/D, Dysuria. Contacted to assess for dementia. During my evaluation, she does not know she's in hospital, believes she's in skilled nursing but cannot state which one. Does not know date. Cannot tell me name of President. CT head complete and without acute changes. CT C spine without fractures. Echo reviewed, EF 65%. Check orthostatics, hydration as able. Monitor tele, physical therapy, fall precautions. Cardiology followup. Added aricept 5mg for now, can have formal memory testing as outpatient. Repeat Ct head reviewd and without acute changes. Carotid doppler noted, consider vascular eval, discussed with primary.
[2018-02-28 09:02] VITALS: BP 167/65; PULSE 66; TEMP 97.8
[2018-02-28] MEDS: ASPIRIN COATED 81 MG TABLET.EC PO SCH (09:15)
[2018-02-28] MEDS: amLODIPine BESYLATE 10 MG TABLET (FP) PO SCH (09:15)
--- NOTE | 2018-02-28 10:24 | PN ---
Progress Note (short form) - Note Progress Note: Chief Complaint: fall History of Present Illness: no chest pain, palps, dizziness, lightheadedness. Current Medications Generic Name Dose Route Start Last Admin Trade Name Greg PRN Reason Stop Dose Admin Acetaminophen 650 mg 02/25/18 20:26 Tylenol - PO Q4H PRN PAIN OR FEVER Amlodipine Besylate 10 mg 02/27/18 10:00 02/28/18 09:15 Norvasc - PO 10 mg DAILY MEGHANN Administration Aspirin 81 mg 02/26/18 10:00 02/28/18 09:15 Ecotrin - PO 81 mg DAILY MEGHANN Administration Atorvastatin Calcium 20 mg 02/26/18 22:00 02/27/18 21:06 Lipitor - PO 20 mg HS MEGHANN Administration Heparin Sodium (Porcine) 5,000 unit 02/25/18 22:00 02/28/18 06:12 Heparin - SQ 5,000 unit TID MEGHANN Administration Vital Signs: Vital Signs Period Temp Pulse Resp BP Sys/Dejesus Pulse Ox Last 24 Hr 97.8 F-98.6 F 62-79 18-20 123-167/52-74 99 Constitutional: Yes: Well Nourished, No Distress, Calm Eyes: Yes: Conjunctiva Clear Neck: Yes: Supple, Trachea Midline Respiratory: Yes: Regular, CTA Bilaterally Gastrointestinal: Yes: Normal Bowel Sounds, Soft Cardiovascular: Yes: Regular Rate and Rhythm JVD: No Heart Sounds: Yes: S1, S2 Musculoskeletal: No: Back Pain Extremities: No: Cold Edema: No Neurological: Yes: Alert, Oriented CBC, BMP 02/28/18 05:30 02/28/18 05:30 Assessment/Plan EKG: sinus, no ST changes echo 02/2018 nl LV function, grossly nl RV function, mild MR, mild AR, RVSP 40- 50 mmHg tele: sinus 87F h/o HTN, HLD, dementia p/w fall, leukocytosis, elevated troponin elevated troponin - flat trend, EKG unremarkable, no chest pain - less likely ACS - may be demand ischemia in setting of MCKENNA, fall, elevated CK - echo shows normal EF HTN - stable, home amlodipine restarted HLD - continue statin MCKENNA - may be prerenal, dehydration - improving - manage per primary team dc tele
--- NOTE | 2018-02-28 11:02 | PN ---
Progress Note (short form) - Note Progress Note: Vascular Surgery Pt seen and examined. Carotid doppler reviewed -- all velocities with in limits. No need for any surgery normal carotid doppler. Kaleb Abad DO
--- NOTE | 2018-02-28 13:10 | DS ---
Physical Examination Vital Signs: Vital Signs Temperature 97.8 F 02/28/18 09:02 Pulse Rate 66 02/28/18 09:02 Respiratory Rate 18 02/28/18 09:02 Blood Pressure 167/65 02/28/18 09:02 O2 Sat by Pulse Oximetry (%) 99 02/27/18 21:00 Constitutional: Yes: Well Nourished, No Distress, Calm Cardiovascular: Yes: WNL, Regular Rate and Rhythm Respiratory: Yes: WNL, Regular, CTA Bilaterally. No: Accessory Muscle Use, SOB , Tachypnea, Wheezes Gastrointestinal: Yes: WNL, Normal Bowel Sounds, Soft. No: Distention, Tenderness Renal/: Yes: WNL Extremities: Yes: WNL Edema: No Neurological: Yes: WNL, Alert, Oriented Psychiatric: Yes: WNL, Alert, Oriented Labs: CBC, BMP 02/28/18 05:30 02/28/18 05:30 Discharge Summary Reason For Visit: SYNCOPE/ELEVATED TROPON/FALL/DEHYDRATION Current Active Problems MCKENNA (acute kidney injury) (Acute) CKD (chronic kidney disease) (Acute) Dehydration (Acute) Dementia (Acute) Elevated troponin (Acute) Fall (Acute) HLD (hyperlipidemia) (Acute) HTN (hypertension) (Acute) Syncope (Acute) Unwitnessed fall (Acute) Hospital Course: 87 year old female pmh of dementia brought in for evaluation of unwitnessed fall /syncope. All imaging negative for fractures. All cardiac work up negative. Pt found to be very dehydrated, mckenna improved with IVF. Head CT negative. Pt evaluated by psych, lacks capacity. Carotids revealed atherosclerotic changes/ calcified plaques, evaluated by vascular, no further action needed. environmental services supervisor have guardianship of pt, discussed importance of SNF for safe placement , agrees. Pt in no acute distress, vitals stable, ambulating better with PT, pt may benefit from SNF for rehab. Pt is medically stable for discharge home hospital. 35 minutes spent in discharge planning. Condition: Improved - Instructions Diet, Activity, Other Instructions: PT as tolerated fall precautions f/u as directed Referrals: Rey Davis MD [Primary Care Provider] - 1 Week Qamar Spencer MD [Staff Physician] - 2 Weeks [facility]position: [facility] - Home Medications Comprehensive Discharge Medication List: Ambulatory Orders Amlodipine Besylate 10 mg PO DAILY 02/25/18 Aspirin [Aspirin EC] 81 mg PO DAILY 02/25/18 Atorvastatin Ca [Lipitor] 20 mg PO HS 02/25/18 Ergocalciferol (Vitamin D2) [Drisdol] 50,000 unit PO DAILY 02/25/18
--- NOTE | 2018-02-28 14:23 | PN ---
Progress Note, [employer] - Note Progress Note: Case reviewed with staff. Repeat CT head (-) for acute stroke. Word error c/w dementia. Tolerating diet. Appetite inconsistent. Pt pending d/c to [facility]. Suggest f/u by speech pathology for communication/word retrieval for ADL.
== END 2018-02-28 15:07 ==
LOC: JER 13:22 → JERBED 20:15 → INTOOBSV 20:15 → J4W 22:28
PROVIDERS: ADMIT Internal Medicine; ATTEND Nurse Practitioner Family
PROC: 3E033NZ Introduction of Analgesics, Hypnotics, Sedatives into Peripheral Vein, Percutaneous Approach (ICD-10-PCS; principal; 2018-02-25)
PROC: 3E013GC Introduction of Other Therapeutic Substance into Subcutaneous Tissue, Percutaneous Approach (ICD-10-PCS; 2018-02-25)
PROC: 3E02340 Introduction of Influenza Vaccine into Muscle, Percutaneous Approach (ICD-10-PCS; 2018-02-25)
DX: R55 Syncope and collapse (principal); S89.81XA Other specified injuries of right lower leg, initial encounter; W18.39XA Other fall on same level, initial encounter; Y93.89 Activity, other specified; Y92.032 Bedroom in apartment as the place of occurrence of the external cause; Y99.8 Other external cause status; R74.8 Abnormal levels of other serum enzymes; E86.0 Dehydration; N28.9 Disorder of kidney and ureter, unspecified; N17.9 Acute kidney failure, unspecified; I12.9 Hypertensive chronic kidney disease with stage 1 through stage 4 chronic kidney disease, or unspecified chronic kidney disease; N18.2 Chronic kidney disease, stage 2 (mild); E78.00 Pure hypercholesterolemia, unspecified; D72.829 Elevated white blood cell count, unspecified; L89.151 Pressure ulcer of sacral region, stage 1; L89.121 Pressure ulcer of left upper back, stage 1; R17 Unspecified jaundice; F03.90 Unspecified dementia, unspecified severity, without behavioral disturbance, psychotic disturbance, mood disturbance, and anxiety; R29.6 Repeated falls; R26.89 Other abnormalities of gait and mobility; Z99.89 Dependence on other enabling machines and devices; Z23 Encounter for immunization
CPT/HCPCS: 36415; 70450-TC; 71045-TC-FY; 72125-TC; 73523-TC-FY; 73552-TC-RT-FY; 73564-TC-RT-FY; 73590-TC-RT-FY; 80048; 80053; 80061; 81003; 81015; 82550; 82553; 83721; 83735; 84100; 84134; 84484; 85025; 85651; 86140; 87086; 90471; 90688; 93005; 93010; 93306-TC; 93880-TC; 96372; 96374; 97116-GP; 97161-GP; 99284-25; G0378; J0131; J1644; J7030